=== PATIENT | female | born 1985 | race Hispanic/Latino ===

== ENCOUNTER 2019-04-29 09:27 | Day surgery (SDC) | payer MEDICAID ==
[2019-04-29] MEDS ORDERED: SODIUM CHLORIDE 0.9% 1000 ML 1,000 ML IV SCH (09:30)
--- NOTE | 2019-04-29 10:21 | Anesthesia Day of Surgery ---
Anesthesia Day of Surgery - Day of Surgery Patient Examined: Yes Patient H&P Reviewed: Yes Patient is NPO: Yes Beta Blockers: No Cardiac Clearance: No Pulmonary Clearance: No Anup's Test: N/A
--- NOTE | 2019-04-29 10:27 | Anesthesia Consultation ---
Anesthesia Consult and Med Hx Date of service: 04/29/19 - Airway Anesthetic Teeth Evaluation: Poor, Chipped ROM Head & Neck: Adequate Mental/Hyoid Distance: Adequate Mallampati Class: Class I Intubation Access Assessment: Good - Pulmonary Exam CTA: Yes - Cardiac Exam Cardiac Exam: RRR - Pre-Operative Health Status ASA Pre-Surgery Classification: ASA2 Proposed Anesthetic Plan: General, MAC - Pulmonary Hx Smoking: Yes SOB: Yes (occasional) - Gastrointestinal Hx Ulcer: No (indigestion, dietary)
[2019-04-29] MEDS ORDERED: LIDOCAINE (2%) 20 MG/1 ML VIAL 20 ML MDV INFILTRATI ONE (10:39)
[2019-04-29] MEDS ORDERED: propofoL 200 MG/20 ML VIAL IV ONE ×3 (10:39→12:56)
[2019-04-29 13:24] VITALS: BP 120/75
--- NOTE | 2019-04-29 15:59 | Discharge Summary ---
Short Stay Discharge Plan Activity: advance as tolerated Weight Bearing Status: Weight Bear as Tolerated Diet: regular Additional Instructions: Post Sedation D/C Instructions When you return home you may resume your regular diet unless otherwise directed. -Go directly home from the hospital and rest quietly. You may resume normal activities tomorrow. -Do NOT drive, return to work, operate any machinery or make any important personal or business decisions today. -Do NOT drink any alcohol or take nerve or sleeping drugs. They add to the effects of the medicine still present in your body. Follow up with Dr. Wesley in 2 weeks to obtain pathology results and treatment plan. Follow up with: JACQUELYN CORONA DO [Primary Care Provider] - 7 Days
--- NOTE | 2019-04-29 15:59 | Operative Report ---
Operative Report Operative Report: Colonoscopy with submucosal injection, snare polypectomy, multiple polyp ablations, multiple hot biopsy polypectomies. DATE: 04/29/2019 ATTENDING PHYSICIAN: Jayson Wesley M.D. OUTSIDE [employer] SALES REPRESENTATIVE: Jayson Wesley M.D. INDICATIONS: Patient is a 34y.o. female who presents for evaluation with colonoscopy because of family history of colon cancer, personal history of diffuse abdominal pain and also progressive constipation. A colonoscopy is done to evaluate patient so that treatment may be directed based on the findings. CONSENT: Informed consent was obtained after the patient was advised regarding the nature of this procedure, its indications, potential benefits as well as possible complications including but not limited to bleeding, perforation, adverse reaction to medications, infection as well as cardiopulmonary complications. An informed written and verbal consent was then obtained after due opportunity was provided for questions and answers. MONITORING: Patient monitored continuously with pulse oximetry, electrocardiographic recordings as well as automatic blood pressure recordings. Patient remained stable throughout the procedure with no untoward events. PREOPERATIVE ASSESSMENT: Patient was assessed immediately prior to this procedure for capacity to tolerate moderate sedation/monitored anesthesia care. [place] anesthesiology association classification is 2. Mallampati class is 2. Hyomental distance is 3. INSTRUMENT: Olympus video colonoscope [id number]. MEDICATIONS: Propofol given intravenously in divided doses. For details, please refer to anesthesia records. DESCRIPTION OF PROCEDURE: Patient was placed in the left lateral decubitus position, after achieving sedation, a digital rectal examination was performed following which the colonoscope was introduced into the anal verge and advanced under direct visualization to the cecum which was identified by the ileocecal valve, the appendiceal orifice, the cecal strap as well as by direct transillumination in the right lower quadrant. Color texture mucosa and anatomy of the colon were carefully examined with the colonoscope. The colonoscope was then gently withdrawn with careful inspection of all mucosa surfaces. The patient tolerated the procedure well with no complications. After completion of the examination, patient was transferred to the recovery room. The prep written regimen was GoLYTELY and the preparation was fair. The following findings were noted. FINDINGS: The preparation was deemed adequate. Patient had a Dubberly prep scale score of 6. The withdrawal time from the cecum was greater than 6 minutes. The study was therefore deemed adequate. Patient had mild diverticulosis of the sigmoid and descending colon. The cecum otherwise was normal. The ascending colon was normal. The transverse colon was normal. Descending colon was normal. In the sigmoid colon, patient had a flat polyp measuring approximately 8 to 10 mm. This was elevated with submucosal injection of saline and removed by snare electrocautery and retrieved. In the rectum, patient had multiple diminutive polyps that were ablated. Patient also had multiple diminutive polyps that were removed by hot biopsy polypectomy. On the retroflexed view at the anal verge patient had internal hemorrhoids. IMPRESSION: Sigmoid colon polyp status post submucosal injection with snare polypectomy Multiple diminutive rectal polyp status post ablation. Multiple diminutive rectal polyp status post hot biopsy polypectomy. Colonic diverticulosis. Internal Hemorrhoids otherwise normal colonoscopy. . PLAN: Follow-up pathology report. Repeat colonoscopy in 5 years. High fiber diet.
== END 2019-04-29 09:28 | disposition home or self-care (01) ==
LOC: GIO 09:27
PROVIDERS: ATTEND Internal Medicine Gastroenterology
DX: R10.84 Generalized abdominal pain (principal); R63.4 Abnormal weight loss; K59.00 Constipation, unspecified; K62.1 Rectal polyp; K63.5 Polyp of colon; K57.30 Diverticulosis of large intestine without perforation or abscess without bleeding; K63.89 Other specified diseases of intestine; F32.9 Major depressive disorder, single episode, unspecified; F17.210 Nicotine dependence, cigarettes, uncomplicated; Z80.0 Family history of malignant neoplasm of digestive organs
CPT/HCPCS: 45381; 45384; 45385; 45388; 81025; 88305; J2704; J7030

== ENCOUNTER 2019-05-13 11:20 | Day surgery (SDC) | payer MEDICAID ==
[~2019-05-13 11:20] MED LIST: SODIUM CHLORIDE 0.9% 1000 ML 1,000 ML IV SCH
--- NOTE | 2019-05-13 12:43 | Anesthesia Day of Surgery ---
Anesthesia Day of Surgery - Day of Surgery Patient Examined: Yes Patient H&P Reviewed: Yes Patient is NPO: Yes
--- NOTE | 2019-05-13 12:43 | Anesthesia Consultation ---
Anesthesia Consult and Med Hx - Airway Anesthetic Teeth Evaluation: Chipped ROM Head & Neck: Adequate Mental/Hyoid Distance: Adequate Mallampati Class: Class II Intubation Access Assessment: Good - Pulmonary Exam CTA: Yes - Cardiac Exam Cardiac Exam: RRR - Pre-Operative Health Status ASA Pre-Surgery Classification: ASA2 Proposed Anesthetic Plan: General, MAC - Pulmonary Hx Smoking: Yes SOB: Yes - Central Nervous System Hx Back Pain: Yes - Gastrointestinal Hx Ulcer: No (indigestion, dietary)
[2019-05-13] MEDS ORDERED: propofoL 200 MG/20 ML VIAL IV ONE (13:37)
--- NOTE | 2019-05-13 13:54 | Discharge Summary ---
Short Stay Discharge Plan Activity: advance as tolerated Weight Bearing Status: Weight Bear as Tolerated Diet: regular Follow up with: JACQUELYN CORONA DO [Primary Care Provider] - 7 Days
--- NOTE | 2019-05-13 13:54 | Operative Report ---
Operative Report Operative Report: DATE: 05/13/2019 Esophagogastroduodenoscopy with multiple mucosal biopsies. ATTENDING PHYSICIAN: Jayson Wesley M.D. OFFICE TECHNOLOGIST: Jayson Wesley M.D. INDICATION: Patient is a 34-year-old female who presents with history of recurrent epigastric pain with chest pain, indigestion, early satiety and anorexia and history of weight loss. An upper endoscopy is done to assess patient so that treatment may be directed based on the findings. CONSENT: Informed consent was obtained after the patient was advised regarding the nature of this procedure, its indications, potential benefits as well as possible complications including but not limited to bleeding, perforation, adverse reaction to medications, infection as well as cardiopulmonary complications. An informed written and verbal consent was then obtained after due opportunity was provided for questions and answers. MONITORING: Patient monitored continuously with pulse oximetry, electrocardiographic recordings as well as automatic blood pressure recordings. Patient remained stable throughout the procedure with no untoward events. PREOPERATIVE ASSESSMENT: Patient was assessed immediately prior to this procedure for capacity to tolerate moderate sedation/monitored anesthesia care. [place] anesthesiology association classification is 2. Mallampatti class is 2. Hyomental distance is 3. INSTRUMENT: Olympus video endoscope CIF Q160. MEDICATIONS: Propofol given intravenously in divided doses. For details, please refer to anesthesia records. DESCRIPTION OF PROCEDURE: Patient was placed in the left lateral decubitus position, after achieving sedation, the endoscope was introduced into the esophagus and advanced under direct visualization into the stomach and then to the second portion of the duodenum. Color texture mucosa and anatomy of the upper gastrointestinal tract was carefully examined with the endoscope which was then gently withdrawn with careful inspection of all mucosa surfaces. The patient tolerated the procedure well with no complications. After completion of the examination, patient was transferred to the recovery room. The preparation was fair. The following findings were noted. FINDINGS: Z line was irregular at 38 cm. There was erythema in the gastric antrum and gastric body. There are multiple linear erosions in the gastric antrum. This was surrounded by some mucosal edema. Biopsies of the antrum were obtained for histopathology. There were multiple erosions in the duodenal bulb. The rest of the examination to the second portion was normal. IMPRESSION: Irregular Z line Gastric antral erythema Gastric antral erosions Duodenal bulb erosions PLAN: Continue treatment with proton pump inhibitors Follow pathology report and direct additional treatment based on the pathology report.
[2019-05-13 14:23] VITALS: BP 111/67
--- NOTE | 2019-05-13 15:04 | Post Anesthesia Evaluation ---
- Post Anesthesia Evaluation Patient Participated: Yes Airway Patent: Yes Stable Respiratory Function: Yes Nausea/Vomiting: No Temp > 96.8F: Yes Pain Manageable: Yes Adequeate Hydration: Yes Anesthesia Complications: No
== END 2019-05-13 11:21 | disposition home or self-care (01) ==
LOC: GIO 11:20
PROVIDERS: ATTEND Internal Medicine Gastroenterology
DX: R63.4 Abnormal weight loss (principal); R68.81 Early satiety; R63.0 Anorexia; K26.9 Duodenal ulcer, unspecified as acute or chronic, without hemorrhage or perforation; K31.89 Other diseases of stomach and duodenum; F17.210 Nicotine dependence, cigarettes, uncomplicated; F32.9 Major depressive disorder, single episode, unspecified; Z98.890 Other specified postprocedural states
CPT/HCPCS: 43239; 81025; 88305; 88342; J2704; J7030